=== PATIENT | female | born 1995 | race Caucasian/White ===

== ENCOUNTER → 2019-07-09 16:10 | Outpatient (BNVA) | payer OTHER, SELFPAY | PROVIDERS: Family Provider Nurse Practitioner; PCP Nurse Practitioner; Visit Provider Nurse Practitioner Women's Health | DX: N93.9 Abnormal uterine and vaginal bleeding, unspecified (principal) | CPT/HCPCS: 84443; 84702; 85027 ==

== ENCOUNTER → 2019-07-15 15:16 | Outpatient (BNVA) | payer OTHER, SELFPAY | PROVIDERS: Family Provider Nurse Practitioner; PCP Nurse Practitioner; Referring Provider Nurse Practitioner Women's Health; Visit Provider Nurse Practitioner Women's Health | DX: N93.9 Abnormal uterine and vaginal bleeding, unspecified (principal) | CPT/HCPCS: 76830 ==

== ENCOUNTER → 2019-10-20 08:58 | Outpatient (BNVA) | payer OTHER, SELFPAY | PROVIDERS: Family Provider Nurse Practitioner; PCP Nurse Practitioner; Visit Provider Nurse Practitioner Women's Health | DX: E61.1 Iron deficiency (principal); N93.9 Abnormal uterine and vaginal bleeding, unspecified; N94.6 Dysmenorrhea, unspecified | CPT/HCPCS: 85027 ==

== ENCOUNTER → 2020-01-20 08:41 | Outpatient (BNVA) | payer OTHER, SELFPAY | PROVIDERS: Family Provider Nurse Practitioner; Visit Provider Nurse Practitioner Women's Health | DX: E61.1 Iron deficiency (principal); N93.9 Abnormal uterine and vaginal bleeding, unspecified; N94.6 Dysmenorrhea, unspecified | CPT/HCPCS: 85025 ==

== ENCOUNTER → 2020-02-09 11:35 | Outpatient (BNVA) | payer OTHER, SELFPAY | PROVIDERS: Family Provider Nurse Practitioner; Visit Provider Obstetrics & Gynecology | DX: E61.1 Iron deficiency (principal); N94.6 Dysmenorrhea, unspecified; N93.9 Abnormal uterine and vaginal bleeding, unspecified | CPT/HCPCS: 83001; 84146; 84443; 84702 ==

== ENCOUNTER → 2021-12-04 15:55 | Outpatient (BNVA) | payer BC, SELFPAY | PROVIDERS: Family Provider Nurse Practitioner; Visit Provider Obstetrics & Gynecology | DX: Z12.4 Encounter for screening for malignant neoplasm of cervix (principal); Z01.419 Encounter for gynecological examination (general) (routine) without abnormal findings; R10.2 Pelvic and perineal pain | CPT/HCPCS: 88175 ==

== ENCOUNTER → 2021-12-11 11:34 | Outpatient (BNVA) | payer BC, SELFPAY | PROVIDERS: Family Provider Nurse Practitioner; Visit Provider Obstetrics & Gynecology | DX: Z32.01 Encounter for pregnancy test, result positive (principal) | CPT/HCPCS: 84702 ==

== ENCOUNTER → 2021-12-14 08:24 | Outpatient (BNVA) | payer BC, SELFPAY | PROVIDERS: Family Provider Nurse Practitioner; Visit Provider Obstetrics & Gynecology | DX: Z34.90 Encounter for supervision of normal pregnancy, unspecified, unspecified trimester (principal) | CPT/HCPCS: 84702 ==

== ENCOUNTER → 2021-12-15 13:50 | Outpatient (BNVA) | payer BC, SELFPAY | PROVIDERS: Family Provider Nurse Practitioner; Visit Provider Obstetrics & Gynecology | DX: Z36.87 Encounter for antenatal screening for uncertain dates (principal) | CPT/HCPCS: 76801; 76817 ==

== ENCOUNTER → 2021-12-18 16:07 | Outpatient (BNVA) | payer BC, SELFPAY | PROVIDERS: Family Provider Nurse Practitioner; Visit Provider Obstetrics & Gynecology | DX: O28.3 Abnormal ultrasonic finding on antenatal screening of mother (principal) | CPT/HCPCS: 84702 ==

== ENCOUNTER → 2021-12-22 08:23 | Outpatient (BNVA) | payer BC, SELFPAY | PROVIDERS: Family Provider Nurse Practitioner; Visit Provider Obstetrics & Gynecology | DX: O36.80X0 Pregnancy with inconclusive fetal viability, not applicable or unspecified (principal); Z3A.01 Less than 8 weeks gestation of pregnancy | CPT/HCPCS: 76817 ==

== ENCOUNTER → 2021-12-29 13:56 | Outpatient (BNVA) | payer BC, SELFPAY | PROVIDERS: Family Provider Nurse Practitioner; Visit Provider Obstetrics & Gynecology | DX: Z34.90 Encounter for supervision of normal pregnancy, unspecified, unspecified trimester (principal) | CPT/HCPCS: 80307; 83036; 84315; 85027; 86592; 86762; 86803; 86850; 86900; 87086; 87340; 87806 ==

== ENCOUNTER → 2022-02-02 14:21 | Outpatient (BNVA) | payer BC, SELFPAY | PROVIDERS: Family Provider Nurse Practitioner; Visit Provider Obstetrics & Gynecology | DX: Z34.90 Encounter for supervision of normal pregnancy, unspecified, unspecified trimester (principal) | CPT/HCPCS: 84315; 87491; 87591 ==

== ENCOUNTER → 2022-02-23 10:25 | Outpatient (BNVA) | payer BC, SELFPAY | PROVIDERS: Family Provider Nurse Practitioner; Visit Provider Nurse Practitioner Women's Health | DX: Z34.90 Encounter for supervision of normal pregnancy, unspecified, unspecified trimester (principal) | CPT/HCPCS: 82105; 84315 ==

== ENCOUNTER → 2022-03-30 10:15 | Outpatient (BNVA) | payer BC, SELFPAY | PROVIDERS: Family Provider Nurse Practitioner; Visit Provider Obstetrics & Gynecology | DX: Z36.87 Encounter for antenatal screening for uncertain dates (principal) | CPT/HCPCS: 76805 ==

== ENCOUNTER → 2022-05-01 15:00 | Outpatient (BNVA) | payer BC, SELFPAY | PROVIDERS: Family Provider Nurse Practitioner; Visit Provider Nurse Practitioner Women's Health | DX: Z34.90 Encounter for supervision of normal pregnancy, unspecified, unspecified trimester (principal); R93.5 Abnormal findings on diagnostic imaging of other abdominal regions, including retroperitoneum | CPT/HCPCS: 82950; 84315 ==

== ENCOUNTER 2022-05-07 08:44 | Outpatient (CLI) | payer BC, SELFPAY ==
[2022-05-07 10:12] LABS: Glucose Fasting Gestational 97 mg/dL (65-115)
[2022-05-07 12:09] LABS: Glucose 1 Hour 114 mg/dL
== END 2022-05-07 08:45 | disposition home or self-care (01) ==
LOC: LAB 08:47
PROVIDERS: Visit Provider Nurse Practitioner Women's Health
DX: Z34.90 Encounter for supervision of normal pregnancy, unspecified, unspecified trimester (principal)
CPT/HCPCS: 36415; 82951; 82952

== ENCOUNTER → 2022-05-09 08:00 | Outpatient (BNVA) | payer BC, SELFPAY | PROVIDERS: Visit Provider Nurse Practitioner Women's Health | DX: Z34.90 Encounter for supervision of normal pregnancy, unspecified, unspecified trimester (principal) | CPT/HCPCS: 82951; 82952 ==

== ENCOUNTER 2022-05-19 07:30 | Outpatient (CLI) | payer BC, SELFPAY ==
[2022-05-19 08:21] LABS: Glucose Fasting 98 mg/dL (74-109)
[2022-05-19 09:15] LABS: Glucose 1 Hour 200 mg/dL
[2022-05-19 10:43] LABS: Glucose 2 Hour 109 mg/dL
[2022-05-19 11:17] LABS: Glucose 3 Hour 60 mg/dL
== END 2022-05-19 07:31 | disposition home or self-care (01) ==
PROVIDERS: Visit Provider Nurse Practitioner Women's Health
DX: O99.810 Abnormal glucose complicating pregnancy (principal)
CPT/HCPCS: 36415; 82951; 82952

== ENCOUNTER → 2022-06-25 14:22 | Outpatient (BNVA) | payer BC, SELFPAY | PROVIDERS: Visit Provider Obstetrics & Gynecology | DX: Z34.90 Encounter for supervision of normal pregnancy, unspecified, unspecified trimester (principal) | CPT/HCPCS: 84315; 85027 ==

== ENCOUNTER → 2022-07-06 09:30 | Outpatient (BNVA) | payer BC, SELFPAY | PROVIDERS: Visit Provider Obstetrics & Gynecology | DX: Z34.90 Encounter for supervision of normal pregnancy, unspecified, unspecified trimester (principal) | CPT/HCPCS: 82728; 83550; 85027 ==

== ENCOUNTER → 2022-07-16 09:00 | Outpatient (BNVA) | payer BC, SELFPAY | PROVIDERS: Visit Provider Obstetrics & Gynecology | DX: O99.019 Anemia complicating pregnancy, unspecified trimester; D64.9 Anemia, unspecified; Z3A.00 Weeks of gestation of pregnancy not specified | CPT/HCPCS: 82728; 83550; 85025 ==

== ENCOUNTER → 2022-07-20 10:57 | Outpatient (BNVA) | payer BC, SELFPAY | PROVIDERS: Visit Provider Obstetrics & Gynecology | DX: O99.019 Anemia complicating pregnancy, unspecified trimester (principal); D64.9 Anemia, unspecified; Z3A.00 Weeks of gestation of pregnancy not specified | CPT/HCPCS: 84315; 85025; 87081 ==

== ENCOUNTER → 2022-07-27 10:47 | Outpatient (BNVA) | payer BC, SELFPAY | PROVIDERS: Visit Provider Obstetrics & Gynecology | DX: O99.019 Anemia complicating pregnancy, unspecified trimester (principal); Z3A.37 37 weeks gestation of pregnancy | CPT/HCPCS: 84315; 85025 ==

== ENCOUNTER 2022-08-10 06:10 | Inpatient (IN) | payer BC, SELFPAY ==
[2022-08-10] VITALS (98 sets, daily range): BP systolic 98–150; BP diastolic 48–88; PULSE 66–116; RESP 18; TEMP 36.1–36.6; O2SAT 87–100; BMI 30.9
[2022-08-10 05:44] LABS: Nitrazine Paper, PH Positive
[2022-08-10 06:26] LABS: Basophils % 0.3 %; Eosinophils # 0.2 10^3/uL (0.0-0.8); Eosinophils % 1.9 %; Hematocrit 33.1 % (37.0-47.0); Hemoglobin 10.5 g/dL (11.5-15.3); Lymphocytes # 1.7 10^3/uL (0.8-4.8); Lymphocytes % 18.6 %; Mean Corpuscular HGB Conc 31.7 g/dL (30.0-36.0); Mean Corpuscular Hemoglobin 31.3 pg (28.0-34.0); Mean Corpuscular Volume 98.8 fl (81-99); Mean Platelet Volume 10.3 fL (7.4-10.4); Monocytes # 0.7 10^3/uL (0.2-0.9); Monocytes % 7.5 %; Neutrophils # 6.52 10^3/uL (1.8-7.7); Neutrophils % 70.2 %; Nucleated Red Blood Cells % 0 %; Platelet Count 234 10^3/cmm (130-400); Red Blood Count 3.35 10^6/uL (4.1-5.3); White Blood Count 9.3 10^3/uL (4.0-10.0)
[2022-08-10] MEDS: miSOPROStol 100 mcg tablet 25 MCG SUBLINGUAL ×2 (06:29→15:23)
[2022-08-10] MEDS: lactated ringers 1,000 ML 999 ML IV ×2 (16:46→18:03)
--- NOTE | 2022-08-10 18:06 | ANES.PROC ---
Anesthesia Procedures Procedure/Date: 08/10/22 epidural Epidural: Time Out Performed: Yes Consents Signed: Procedure Consent Consent: from patient, risks and benefits reviewed and patient agrees to proceed Lumbar Level: L3-L4 Epidural position: sitting Epidural procedure: sterile prep of area, 1% lidocaine to numb the area, 18 g needle, negative for paresthesia passed, test dose given, 1.5% xylocaine 1:200k epi, placed PCEA, no systemic response, sterile dressing applied, L.U.D. no apparent complications and 0.2% Ropiavacaine @ mls/hr (11) Additional Comments: JAYNA at 4.5, taped at 12 at skin
--- NOTE | 2022-08-10 18:07 | P.ANESASSM_ITS ---
Pre-Anesthetic Assessment Height/Weight: Height 1.55 m Weight 74.389 kg Temp Pulse Resp BP Pulse Ox O2 Del Method 97.9 F 75 18 120/58 97 Room Air 08/10/22 15:06 08/10/22 18:03 08/10/22 06:01 08/10/22 18:03 08/10/22 18:02 08/10/22 05:46 Preop Diagnosis: iup epidural Familial anesthetic complications: none Was Beta Primo taken within 24 hours: N/A Was Clonidine taken within 24 hours: N/A Last Intake: 12:00 Social No alcohol and No tobacco Exam alert and oriented x 3 Airway Submandibular: within normal limits Cervical ROM: within normal limits Mallampati: Class II Dentition: full History/ROS No significant history except as noted Pulmonary None reported CV/HEM None reported None reported Hepatic None reported GI None reported Metabolic None reported Musc/skel None reported Neuropsych was told in the past she has scoliosis Anesthetic Plan ASA status: 2 Anesthesia: Anesthesia Evaluation and Regional (specify below) (EBONIE) Medications/Allergies Home Medications Medication Instructions Recorded Confirmed Last Taken Type wacnxehx-aaujrhc-ziur-iron 18 tab PO 12/04/21 07/27/22 Unknown History mg-FA 400 mcg-vit K 25 mcg tablet (One-A-Day Women's Complete) ascorbate calcium (vitamin C) 500 500 mg PO DAILY 06/25/22 07/27/22 Unknown Hi story mg tablet ferrous sulfate 325 mg (65 mg 325 mg PO DAILY 06/25/22 07/27/22 Unknown History iron) tablet (Feosol) Allergies Allergy/AdvReac Type Severity Reaction Status Date / Time Penicillins Allergy Intermediate Rash Verified 07/27/22 10:58 Current Medications Generic Name Dose Route Start Last Admin Trade Name Freq PRN Reason Stop Dose Admin Lactated Ringer's 1,000 mls @ 999 mls/hr 08/10/22 16:58 08/10/22 18:03 Lactated Ringers IV 999 mls/hr .Q1H1M PRN Administration See label comments PFSH Anesthesia Medical History Raynaud's phenomenon with gangrene Scoliosis Surgical History No pertinent past surgical history Family History Grandmother Diabetes Grandfather Diabetes Family/Other Diabetes Father Hyperlipidemia Mother Hypertension Denies family history of Colon cancer Ovarian cancer Heart disease Breast cancer Family history of thyroid problem Uterine cancer Stroke Social History Substance/Drug Use: never Female Reproductive History : 1 Data Anesthesia 08/10/22 06:00 Short CBC 08/10/22 Range/Units 06:00 WBC 9.3 (4.0-10.0) 10^3/uL Hgb 10.5 L (11.5-15.3) g/dL Hct 33.1 L (37.0-47.0) % MCV 98.8 (81-99) fl Plt Count 234 (130-400) 10^3/cmm Neut % (Auto) 70.2 % Neut # (Auto) 6.52 (1.8-7.7) 10^3/uL Cardiac Studies: No Data to Display
[2022-08-10] MEDS: dextrose 5%-lactated ringers 1,000 ML 125 ML IV ×2 (18:31→22:30)
[2022-08-10] MEDS: clindamycin 600 MG/50 ML PREMIX 100 MG IV (23:46)
[2022-08-11] VITALS (53 sets, daily range): BP systolic 99–156; BP diastolic 55–86; PULSE 82–150; RESP 17; TEMP 36.7–37.8; O2SAT 91–100
[2022-08-11] MEDS: acetaminophen 325 mg Tablet 650 MG PO (05:16)
[2022-08-11] MEDS: fentaNYL 50 mcg/mL INJ 2mL IVP (07:38)
--- NOTE | 2022-08-11 07:41 | PC.NURSE ---
vacuum applied per dr medina at 0700:58. vacuum removed at 0701:27. applied at 0701:28. off at 0701:42. on at 0701:44. pop off at 0701:58. on at 0703:00. off at 0703:32. on at 0703:34. pop off at 0704:02. on at 0705:02. pop off at 0705:24. third pop off announced to room at this time. on at 0707. pop off at 0707. on at 0709. off at 0709. vacuum on at 0711. vacuum off at 0712.
--- NOTE | 2022-08-11 08:10 | P.ANES_ITS ---
Anesthesia Procedures Procedure/Date: 08/11/22 Dose Epidural for Pain Management. Procedure Narrative: OUTSIDE SALESMAN called to bedside to dose Epidural during vaginal repair. Patient is resting with baby on chest reports that epidural was functional 10ml 3% Nesicaine was drawn up and given via epidural, negative aspiration prior to injection. Relief reported by patient.
[2022-08-11] MEDS: ibuprofen 800 mg tablet PO ×3 (09:39→21:02)
[2022-08-11] MEDS: docusate sodium 100 mg Capsule PO (21:02)
[2022-08-11 21:24] LABS: Hematocrit 23.2 % (37.0-47.0); Hemoglobin 7.4 g/dL (11.5-15.3); Mean Corpuscular HGB Conc 31.9 g/dL (30.0-36.0); Mean Corpuscular Hemoglobin 31.6 pg (28.0-34.0); Mean Corpuscular Volume 99.1 fl (81-99); Platelet Count 177 10^3/cmm (130-400); Red Blood Count 2.34 10^6/uL (4.1-5.3); Red Cell Distribution Width 15.4 % (12.1-15.1); White Blood Count 18.2 10^3/uL (4.0-10.0)
[2022-08-11] MEDS: ferrous sulfate EC 325 mg Tablet PO (22:48)
[2022-08-12 04:00] VITALS: BP 112/57; PULSE 89; RESP 18; TEMP 36.4; O2SAT 97
[2022-08-12] MEDS: ibuprofen 800 mg tablet PO (08:35)
[2022-08-12] MEDS: docusate sodium 100 mg Capsule PO (08:35)
[2022-08-12] MEDS: prenatal vitamin Capsule 1 CAP PO (08:35)
[2022-08-12] MEDS: ferrous sulfate EC 325 mg Tablet PO (08:35)
--- NOTE | 2022-08-12 10:06 | PM.OBGYHP ---
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 History of Present Illness August 10, 2022, 1010 Elicia Morrow is a 27 year old female G1 EDC August 15, 2022 at 39 + weeks no complications c/o leakage of clear fluid and UCs no bleeding + active movements Present Details : 1 Para: 0 Labs Rubella: Immune GBS: Negative Medications/Allergies Home Medications Medication Instructions Recorded Confirmed Last Taken Type inzqsyrv-ssusroe-qxvd-iron 18 tab PO 12/04/21 07/27/22 Unknown History mg-FA 400 mcg-vit K 25 mcg tablet (One-A-Day Women's Complete) ascorbate calcium (vitamin C) 500 500 mg PO DAILY 06/25/22 07/27/22 Unknown History mg tablet ferrous sulfate 325 mg (65 mg 325 mg PO DAILY 06/25/22 07/27/22 Unknown History iron) tablet (Feosol) Allergies Allergy/AdvReac Type Severity Reaction Status Date / Time Penicillins Allergy Intermediate Rash Verified 07/27/22 10:58 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 PFSH: Medical History Raynaud's phenomenon with gangrene Scoliosis Surgical History No pertinent past surgical history Family History Grandmother Diabetes Grandfather Diabetes Family/Other Diabetes Father Hyperlipidemia Mother Hypertension Denies family history of Colon cancer Ovarian cancer Heart disease Breast cancer Family history of thyroid problem Uterine cancer Stroke Social History Substance/Drug Use: never Other Female Reproductive History: Hx Age of Menarche: 15 History History History 1 Term Miscarriages/Ectopic Living Children Care KERA Calculator Estimated Delivery Date Method Current WG Current Estimate 08/15/22 Ultrasound #1 39w 4d Other Estimates 08/06/22 LMP (Uncertain) 40w 6d 08/08/22 Ultrasound #2 40w 4d Specific Issues/Plans Right adnexal tenderness Anemia <del>Abnormal</del> <del>GCT</del> <del>with</del> <del>normal</del> <del>3-hour</del> RESOLVED Vitals/I&O/Wt Last Vital Signs Temp 97.6 F 08/12/22 04:00 Pulse 89 08/12/22 04:00 Resp 18 08/12/22 04:00 BP 112/57 08/12/22 04:00 Pulse Ox 97 08/12/22 04:00 O2 Del Method Room Air 08/12/22 04:00 08/11/22 08/12/22 08/12/22 22:59 06:59 14:59 Output Total 400 / 900 Balance -400 / 627.033 Physical Exam Narrative: VS normal comfortable Fundal height 38 cm, cephalic Perineum: + gross clear fluid Cx: 1 cm / -2 External monitor: + UCs, mild to palpation heart tracing good variability, + accelerations Urinary Catheter Management: Cochran Latex: Cath Placed During This Visit: yes, but has since been removed by the nurse Reason for Continuing Indwelling Catheter: Decision to DC Catheter Urinary Catheter Date of Insertion: 08/10/22 Urinary Catheter Time of Insertion: 18:30 Date Urinary Catheter Removed: 08/11/22 Time Urinary Catheter Discontinued: 06:37 Data 08/11/22 21:15 Micro: GBS negative A&P Assessment and plan (1) Term : (2) Spontaneous rupture of membranes: fetus reassuring plan cytotec labor induction Attestations Medical Necessity Statement*: patient at 39+ weeks gestation with spontaneous rupture of membranes Coding Level of Care Code Acute Code for Chg Fwd Diagnoses Term Z34.90 Spontaneous rupture of membranes Time Spent (min) 45
--- NOTE | 2022-08-12 10:17 | P.PN_ITS ---
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 Subjective Subjective: Interval history: August 10, 2022, 2149 patient comfortable with epidural fetus reassuring Cx: 4-5 cm / 90 / -2 IUPC placed plan start clindamycin 600 mg IV q8h (patient SROM for more than 12 hours and allergic to penicillin) Labor: Station: +2 Amniotic Membrane Status: Ruptured Monitor Mode: Internal (IUPC) Contraction Pattern: Irregular Uterine Tone Measurement: 15 Vitals/I&O/Wt Last Vital Signs Temp 97.6 F 08/12/22 04:00 Pulse 89 08/12/22 04:00 Resp 18 08/12/22 04:00 BP 112/57 08/12/22 04:00 Pulse Ox 97 08/12/22 04:00 O2 Del Method Room Air 08/12/22 04:00 08/11/22 08/12/22 08/12/22 22:59 06:59 14:59 Output Total 400 / 900 Balance -400 / 627.033 Physical Exam Urinary Catheter Management: Cochran Latex: Cath Placed During This Visit: yes, but has since been removed by the nurse Reason for Continuing Indwelling Catheter: Decision to DC Catheter Urinary Catheter Date of Insertion: 08/10/22 Urinary Catheter Time of Insertion: 18:30 Date Urinary Catheter Removed: 08/11/22 Time Urinary Catheter Discontinued: 06:37 Data 08/11/22 21:15 A&P Assessment and plan (1) Spontaneous rupture of membranes: plan continue pitocin augmentation of labor (2) Term : Attestations Medical Necessity Statement*: patient at term with spontaneous rupture of membranes Coding Level of Care Code Acute Code for Chg Fwd Diagnoses Spontaneous rupture of membranes Term Z34.90 Time Spent (min) 15
--- NOTE | 2022-08-12 10:20 | P.PN_ITS ---
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 Subjective Subjective: Interval history: August 11, 2022, 0435 fetus reassuring pitocin at 8 mU UCs not adequate Cx: 7 cm (per RN exam) Continue pitocin Labor: Station: +2 Amniotic Membrane Status: Ruptured Monitor Mode: Internal (IUPC) Contraction Pattern: Irregular Uterine Tone Measurement: 15 Vitals/I&O/Wt Last Vital Signs Temp 97.6 F 08/12/22 04:00 Pulse 89 08/12/22 04:00 Resp 18 08/12/22 04:00 BP 112/57 08/12/22 04:00 Pulse Ox 97 08/12/22 04:00 O2 Del Method Room Air 08/12/22 04:00 08/11/22 08/12/22 08/12/22 22:59 06:59 14:59 Output Total 400 / 900 Balance -400 / 627.033 Physical Exam Urinary Catheter Management: Cochran Latex: Cath Placed During This Visit: yes, but has since been removed by the nurse Reason for Continuing Indwelling Catheter: Decision to DC Catheter Urinary Catheter Date of Insertion: 08/10/22 Urinary Catheter Time of Insertion: 18:30 Date Urinary Catheter Removed: 08/11/22 Time Urinary Catheter Discontinued: 06:37 Data 08/11/22 21:15 A&P Assessment and plan (1) Spontaneous rupture of membranes: (2) Term : Attestations Medical Necessity Statement*: patient at term with spontaneous rupture of membranes Coding Level of Care Code Acute Code for Chg Fwd Diagnoses Spontaneous rupture of membranes Term Z34.90 Time Spent (min) 15
--- NOTE | 2022-08-12 10:31 | PM.OBGYPN ---
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 Subjective Subjective: Interval history: August 11, 2022, 0910 DELIVERY NOTE fetus CONRADO, + 2 station patient has been pushing x more than one hour now with poor pushing efforts due to exhaustion Kiwi vacuum extractor applied Mild traction used through three UCs, + 3 pop-offs brought head to +3 patient spontaneously pushed baby to perineum shoulders delivered easily vigorous male cord gases and blood obtained + retained placenta required manual removal placenta grossly complete uterine cavity explored manually, palpably clear Third-degree perineal laceration repaired in layers EBL: 500 cc no complications Labor: Station: +2 Amniotic Membrane Status: Ruptured Monitor Mode: Internal (IUPC) Contraction Pattern: Irregular Uterine Tone Measurement: 15 Vitals/I&O/Wt Last Vital Signs Temp 97.6 F 08/12/22 04:00 Pulse 89 08/12/22 04:00 Resp 18 08/12/22 04:00 BP 112/57 08/12/22 04:00 Pulse Ox 97 08/12/22 04:00 O2 Del Method Room Air 08/12/22 04:00 08/11/22 08/12/22 08/12/22 22:59 06:59 14:59 Output Total 400 / 900 Balance -400 / 627.033 Physical Exam Urinary Catheter Management: Cochran Latex: Cath Placed During This Visit: yes, but has since been removed by the nurse Reason for Continuing Indwelling Catheter: Decision to DC Catheter Urinary Catheter Date of Insertion: 08/10/22 Urinary Catheter Time of Insertion: 18:30 Date Urinary Catheter Removed: 08/11/22 Time Urinary Catheter Discontinued: 06:37 Data 08/11/22 21:15 A&P Assessment and plan (1) Spontaneous rupture of membranes: (2) Term : (3) Vaginal delivery: (4) Perineal laceration during delivery: Attestations Medical Necessity Statement*: patient at term, spontaneous rupture of membranes, vaginal delivery Coding Level of Care Code Acute Code for Chg Fwd Diagnoses Spontaneous rupture of membranes Term Z34.90 Vaginal delivery O80 Perineal laceration during delivery O70.9 Time Spent (min) 60
--- NOTE | 2022-08-12 10:42 | PM.DELIVERY ---
Delivery Note: Date of delivery: August 11, 2022 Pre-delivery diagnoses: 39+ weeks spontaneous vaginal delivery labor augmentation Post-delivery diagnoses: vacuum-assisted vaginal delivery retained placenta third-degree perineal laceration Procedure: Vacuum-assisted vaginal delivery manual removal of retained placenta third-degree perineal laceration reapired Delivering Physician: Teddy Benton M.D. Estimated blood loss (mL): 500 Pre-Delivery Course: cytotec and pitocin induction / augmentation of labor Delivery: vacuum-assisted vaginal delivery Post-Delivery Status: good History History History 1 Term Miscarriages/Ectopic Living Children A&P Assessment and plan (1) Term : (2) Spontaneous rupture of membranes: (3) Vaginal delivery: (4) Perineal laceration during delivery: (5) Retained placenta: Coding Level of Care Code Acute Code for Chg Fwd Diagnoses Term Z34.90 Spontaneous rupture of membranes Vaginal delivery O80 Perineal laceration during delivery O70.9 Retained placenta O73.0 Time Spent (min) 60
--- NOTE | 2022-08-12 10:50 | P.PN_ITS ---
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 Subjective Subjective: Interval history: August 12, 2022, 0850 no c/o except for tailbone pain no dizziness, weakness eating, ambulating, voiding well no bleeding caring for without any difficulties Labor: Station: +2 Amniotic Membrane Status: Ruptured Monitor Mode : Internal (IUPC) Contraction Pattern: Irregular Uterine Tone Measurement: 15 Vitals/I&O/Wt Last Vital Signs Temp 97.6 F 08/12/22 04:00 Pulse 89 08/12/22 04:00 Resp 18 08/12/22 04:00 BP 112/57 08/12/22 04:00 Pulse Ox 97 08/12/22 04:00 O2 Del Method Room Air 08/12/22 04:00 08/11/22 08/12/22 08/12/22 22:59 06:59 14:59 Output Total 400 / 900 Balance -400 / 627.033 Physical Exam Narrative: comfortable afebrile, VS normal Abd: soft, nontender Ext: normal Urinary Catheter Management: Cochran Latex: Cath Placed During This Visit: yes, but has since been removed by the nurse Reason for Continuing Indwelling Catheter: Decision to DC Catheter Urinary Catheter Date of Insertion: 08/10/22 Urinary Catheter Time of Insertion: 18:30 Date Urinary Catheter Removed: 08/11/22 Time Urinary Catheter Discontinued: 06:37 Data 08/11/22 21:15 A&P Assessment and plan (1) Vaginal delivery: doing well (2) Anemia: continue iron BID call/return if dizziness, weakness plan re-check Hgb at next clinic visit (3) Coccygeal pain: reassurrance continue NSAIDs call/return if pain worsens Attestations Medical Necessity Statement*: patient s/p vaginal delivery Coding Level of Care Code Acute Code for Chg Fwd Diagnoses Vaginal delivery O80 Anemia D64.9 Coccygeal pain M53.3 Time Spent (min) 30
--- NOTE | 2022-08-12 10:55 | PM.OBGYDC ---
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 Date of Admission: 08/10/22 06:10 Date of Discharge: 08/12/22 Attending Provider at Admission: Teddy Benton MD Attending Provider at Discharge: Teddy Benton MD Diagnoses at Discharge Discharge Diagnosis (1) Vaginal delivery: Details from hospital stay: Vacuum-assisted vaginal delivery retained placenta requiring manual removal third-degree perineal laceration repaired Status: Acute (2) Anemia: Status: Acute (3) Coccygeal pain: Status: Acute Reason for Visit Reason for Visit: Possible ROM Hospital Course Hospital Course patient received cytotec and pitocin augmentation of labor had vacuum-assisted vaginal delivery of vigorous male normal course + anemia Information Peripartum Data: Infant Delivery Method: Vaginal Laceration description: Perineal - 3rd Degree complications: retained placenta Physical Exam Narrative: HEENT: mild conjunctival pallor Lungs: clear Cor: RRR, no tachycardia Abd: soft, nontender Ext: normal Urinary Catheter Management: Cochran Latex: Cath Placed During This Visit: yes, but has since been removed by the nurse Reason for Continuing Indwelling Catheter: Decision to DC Catheter Urinary Catheter Date of Insertion: 08/10/22 Urinary Catheter Time of Insertion: 18:30 Date Urinary Catheter Removed: 08/11/22 Time Urinary Catheter Discontinued: 06:37 History History History 1 Term Miscarriages/Ectopic Living Children Discharge Data Studies Completed and Pending Laboratory Results WBC 18.2 10^3/uL (4.0-10.0) H 08/11/22 21:15 RBC 2.34 10^6/uL (4.1-5.3) L 08/11/22 21:15 Hgb 7.4 g/dL (11.5-15.3) L 08/11/22 21:15 Hct 23.2 % (37.0-47.0) L 08/11/22 21:15 MCV 99.1 fl (81-99) H 08/11/22 21:15 MCH 31.6 pg (28.0-34.0) 08/11/22 21:15 MCHC 31.9 g/dL (30.0-36.0) 08/11/22 21:15 RDW 15.4 % (12.1-15.1) H 08/11/22 21:15 Plt Count 177 10^3/cmm (130-400) 08/11/22 21:15 MPV 10.0 fL (7.4-10.4) 08/11/22 21:15 Neut % (Auto) 70.2 % 08/10/22 06:00 Lymph % (Auto) 18.6 % 08/10/22 06:00 [place] % (Auto) 7.5 % 08/10/22 06:00 Eos % (Auto) 1.9 % 08/10/22 06:00 Baso % (Auto) 0.3 % 08/10/22 06:00 Neut # (Auto) 6.52 10^3/uL (1.8-7.7) 08/10/22 06:00 Lymph # (Auto) 1.7 10^3/uL (0.8-4.8) 08/10/22 06:00 [place] # (Auto) 0.7 10^3/uL (0.2-0.9) 08/10/22 06:00 Eos # (Auto) 0.2 10^3/uL (0.0-0.8) 08/10/22 06:00 Baso # (Auto) 0.0 10^3/uL (0.0-0.1) 08/10/22 06:00 Nucleated RBC % (auto) 0 % 08/10/22 06:00 Nucleated RBCs # 0.0 /100WBC 08/10/22 06:00 Vitals Last Vital Signs Temp 97.6 F 08/12/22 04:00 Pulse 89 08/12/22 04:00 Resp 18 08/12/22 04:00 BP 112/57 08/12/22 04:00 Pulse Ox 97 08/12/22 04:00 O2 Del Method Room Air 08/12/22 04:00 Discharge Plan Discharge Patient Disposition: Home Condition: Stable Prescriptions: Continued One-A-Day Women's Complete 18 mg-400 mcg- 25 mcg tablet PO ferrous sulfate [Feosol] 325 mg (65 mg iron) tablet 325 mg PO DAILY ascorbate calcium (vitamin C) 500 mg tablet 500 mg PO DAILY Discharge Orders: Discharge Order (Routine); Ordered 08/12/22 Ordered By: Teddy Benton Discharge Diet: Usual diet Discharge Activity: Increase activity as tolerated Patient Instructions: Opioid Safety Discharge Attestations CONSUMER SAFETY OFFICER Time Spent in Discharge Care*: less than 30 min Status at Discharge: Overall status at discharge: patient is back to baseline Coding Level of Care Code Acute Code for Chg Fwd Diagnoses Vaginal delivery O80 Anemia D64.9 Coccygeal pain M53.3 Time Spent (min) 30
[2022-08-12 12:18] VITALS: BP 112/68; PULSE 82; RESP 16; TEMP 36.7; O2SAT 97
--- NOTE | 2022-08-13 07:40 | ANE.PACU2 ---
Inpatient post-anesthesia follow up: Airway intact: Yes Vital signs: Temperature 98.0 F Pulse Rate 82 Respiratory Rate 16 Blood Pressure 112/68 Pulse Oximetry 97 Oxygen Delivery Me thod Room Air Oxygen Flow Rate Fraction of Inspir ed Oxygen Hydration adequate: Yes Nausea and vomiting: No Pain level: 2 Mental status: Baseline
== END 2022-08-12 12:39 | disposition home or self-care (01) | DRG 768 ==
LOC: OPOB 06:10 → OBGYN 06:10
PROVIDERS: Admitting Provider Obstetrics & Gynecology; Visit Provider Obstetrics & Gynecology
DX: O42.02 Full-term premature rupture of membranes, onset of labor within 24 hours of rupture (principal); Z37.0 Single live birth; O70.20 Third degree perineal laceration during delivery, unspecified; O99.02 Anemia complicating childbirth; D64.9 Anemia, unspecified; Z3A.39 39 weeks gestation of pregnancy; Z88.0 Allergy status to penicillin; I73.00 Raynaud's syndrome without gangrene; M41.9 Scoliosis, unspecified; O75.89 Other specified complications of labor and delivery; M53.3 Sacrococcygeal disorders, not elsewhere classified
CPT/HCPCS: 36415; 51702; 59025; 59409; 83986; 85025; 85027; 96374; 99211; J2400; J2795; J3010; J3490; J7040; J7120; J7121

== ENCOUNTER 2022-10-06 13:16 | Emergency (ER) | payer OTHER, BC, SELFPAY ==
[2022-10-06 13:31] VITALS: BP 121/78; PULSE 94; RESP 16; TEMP 36.8; O2SAT 95; BMI 25.1
[2022-10-06 14:03] VITALS: BP 123/79; PULSE 99; RESP 16; O2SAT 96
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
--- NOTE | 2022-10-25 15:00 | DCPLANNER ---
late entry - patient called due to no primary care physician - patient declined at this time.
== END 2022-10-06 15:10 | disposition home or self-care (01) ==
PROVIDERS: Emergency Provider Physician Assistant
DX: M54.6 Pain in thoracic spine (principal); V89.2XXA Person injured in unspecified motor-vehicle accident, traffic, initial encounter
CPT/HCPCS: 73030; 99283

== ENCOUNTER 2024-04-06 07:30 | Outpatient (CLI) | payer BC, SELFPAY ==
[2024-04-06 09:31] LABS: Estradiol 23.7 pg/mL; Progesterone 0.097 ng/mL
== END 2024-04-06 07:31 | disposition home or self-care (01) ==
PROVIDERS: PCP Family Medicine; Visit Provider Obstetrics & Gynecology Gynecology
DX: Z31.7 Encounter for procreative management and counseling for gestational carrier (principal)
CPT/HCPCS: 36415; 82670; 84144

== ENCOUNTER 2024-04-06 11:39 | Outpatient (CLI) | payer SELFPAY ==
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
== END 2024-04-06 11:40 | disposition home or self-care (01) ==
LOC: RAD 11:42
PROVIDERS: Visit Provider Nurse Practitioner Adult Health
DX: Z31.7 Encounter for procreative management and counseling for gestational carrier (principal)
CPT/HCPCS: 76830

== ENCOUNTER 2024-04-09 07:06 | Outpatient (CLI) | payer BC, SELFPAY | END 2024-04-09 07:07 | disposition home or self-care (01) | LOC: LAB 07:10 | PROVIDERS: Visit Provider Obstetrics & Gynecology Gynecology | DX: Z31.7 Encounter for procreative management and counseling for gestational carrier (principal) | CPT/HCPCS: 36415; 82670 ==

== ENCOUNTER 2024-04-13 07:01 | Outpatient (CLI) | payer BC, SELFPAY ==
[2024-04-13 07:57] LABS: Estradiol 351.7 pg/mL
== END 2024-04-13 07:02 | disposition home or self-care (01) ==
PROVIDERS: Visit Provider Obstetrics & Gynecology Gynecology
DX: Z31.7 Encounter for procreative management and counseling for gestational carrier (principal)
CPT/HCPCS: 82670

== ENCOUNTER 2024-04-24 07:11 | Outpatient (CLI) | payer BC, SELFPAY ==
[2024-04-24 08:10] LABS: Progesterone 20.13 ng/mL
== END 2024-04-24 07:12 | disposition home or self-care (01) ==
LOC: LAB 07:16
PROVIDERS: PCP Family Medicine
DX: Z01.89 Encounter for other specified special examinations (principal)
CPT/HCPCS: 36415; 84144

== ENCOUNTER 2024-05-02 08:26 | Outpatient (CLI) | payer BC, SELFPAY | END 2024-05-02 08:27 | disposition home or self-care (01) | PROVIDERS: Obstetrics & Gynecology Gynecology; PCP Family Medicine; Visit Provider Family Medicine | DX: Z01.89 Encounter for other specified special examinations (principal) | CPT/HCPCS: 84702 ==

== ENCOUNTER 2024-05-04 07:20 | Outpatient (CLI) | payer BC, SELFPAY | END 2024-05-04 07:21 | disposition home or self-care (01) | LOC: LAB 07:22 | PROVIDERS: PCP Family Medicine; Visit Provider Obstetrics & Gynecology Gynecology | DX: Z31.7 Encounter for procreative management and counseling for gestational carrier (principal) | CPT/HCPCS: 36415; 84702 ==

== ENCOUNTER 2024-05-06 07:01 | Outpatient (CLI) | payer BC, SELFPAY | END 2024-05-06 07:02 | disposition home or self-care (01) | LOC: LAB 07:09 | PROVIDERS: PCP Family Medicine; Visit Provider Family Medicine | DX: Z31.7 Encounter for procreative management and counseling for gestational carrier (principal) | CPT/HCPCS: 36415; 84702 ==

== ENCOUNTER 2024-09-08 12:37 | Outpatient (CLI) | payer BC, SELFPAY ==
[2024-09-08 12:50] VITALS: BP 128/73; PULSE 94
[2024-09-08 12:52] VITALS: RESP 18; BMI 29.0
[2024-09-08 13:03] VITALS: BP 109/62; PULSE 88
[2024-09-08 13:07] LABS: Bilirubin Urine Negative (Negative); Blood Urine Negative (Negative); Glucose Urine UA Negative (Normal); Ketones Urine Negative (Negative); Leukocyte Esterase Urine Negative (Negative); Nitrate Urine Negative (Negative); Protein Urine Negative (Negative); Specific Gravity, Urine 1.009 (1.005-1.030); Urine Appearance Clear (CLEAR); Urine Color Yellow (Yellow); Urobilinogen Urine 0.2 mg/dL (Negative)
[2024-09-08 13:13] LABS: Bacteria Urine 1+ /hpf; Hyaline Casts Urine 0.81 /lpf; RBC Urine 0-2 /hpf (0-2); Squamous Epithelial Cell Urine 0-5 /hpf (0-5)
[2024-09-08 13:18] VITALS: BP 109/60; PULSE 92
[2024-09-08 13:22] LABS: Add Urine Culture? No
== END 2024-09-08 13:30 | disposition home or self-care (01) ==
LOC: OPOB 12:38 → OBGYN 12:40
PROVIDERS: PCP Family Medicine; Visit Provider Family Medicine
DX: O26.899 Other specified pregnancy related conditions, unspecified trimester (principal); Z3A.00 Weeks of gestation of pregnancy not specified; R10.9 Unspecified abdominal pain
CPT/HCPCS: 81001; 99211

== ENCOUNTER 2024-12-04 12:11 | Outpatient (CLI) | payer BC, SELFPAY ==
[2024-12-04 12:20] VITALS: BP 119/71; PULSE 97
[2024-12-04 12:23] VITALS: RESP 16; TEMP 36.5; BMI 30.4
[2024-12-04 12:35] VITALS: BP 110/59; PULSE 94
== END 2024-12-04 12:49 | disposition home or self-care (01) ==
LOC: OPOB 12:17 → OBGYN 12:18
PROVIDERS: PCP Family Medicine; Visit Provider Family Medicine
DX: O24.419 Gestational diabetes mellitus in pregnancy, unspecified control (principal); Z3A.00 Weeks of gestation of pregnancy not specified
CPT/HCPCS: 59025

== ENCOUNTER 2024-12-07 10:30 | Outpatient (CLI) | payer BC, SELFPAY ==
[2024-12-07 10:38] VITALS: BP 115/69; PULSE 130
[2024-12-07 10:48] VITALS: RESP 18; BMI 30.1
[2024-12-07 10:53] VITALS: BP 108/66; PULSE 126
[2024-12-07 10:55] VITALS: PULSE 130; O2SAT 97
[2024-12-07 11:00] VITALS: PULSE 122; O2SAT 97
[2024-12-07 11:05] VITALS: PULSE 122; O2SAT 97
== END 2024-12-07 11:08 | disposition home or self-care (01) ==
LOC: OPOB 10:33 → OBGYN 10:33
PROVIDERS: PCP Family Medicine; Visit Provider Family Medicine
DX: O24.419 Gestational diabetes mellitus in pregnancy, unspecified control (principal); Z3A.00 Weeks of gestation of pregnancy not specified
CPT/HCPCS: 59025

== ENCOUNTER 2024-12-10 08:49 | Outpatient (CLI) | payer BC, SELFPAY ==
[2024-12-10 08:56] VITALS: BP 120/79; PULSE 103
[2024-12-10 09:00] VITALS: RESP 16; TEMP 36.6
[2024-12-10 09:16] VITALS: BP 120/83; PULSE 95
[2024-12-10 09:25] VITALS: BP 120/83; PULSE 95; RESP 16; TEMP 36.6; O2SAT 99
== END 2024-12-10 09:25 | disposition home or self-care (01) ==
LOC: OPOB 08:50 → OBGYN 08:52
PROVIDERS: PCP Family Medicine; Visit Provider Family Medicine
DX: O24.419 Gestational diabetes mellitus in pregnancy, unspecified control (principal); Z3A.00 Weeks of gestation of pregnancy not specified
CPT/HCPCS: 59025; 99211

== ENCOUNTER 2024-12-14 11:40 | Outpatient (CLI) | payer BC, SELFPAY ==
[2024-12-14 11:53] VITALS: BP 129/71; PULSE 112
[2024-12-14 12:41] VITALS: BP 129/71; PULSE 109; O2SAT 98
== END 2024-12-14 12:26 | disposition home or self-care (01) ==
LOC: OPOB 11:42 → OBGYN 11:43
PROVIDERS: PCP Family Medicine; Visit Provider Family Medicine
DX: O24.419 Gestational diabetes mellitus in pregnancy, unspecified control (principal); Z3A.00 Weeks of gestation of pregnancy not specified
CPT/HCPCS: 59025

== ENCOUNTER 2024-12-18 11:54 | Outpatient (CLI) | payer BC, SELFPAY ==
[2024-12-18 11:54] VITALS: RESP 17; BMI 30.4
[2024-12-18 11:59] VITALS: BP 124/75; PULSE 97
[2024-12-18 12:14] VITALS: BP 126/74; PULSE 96
== END 2024-12-18 12:30 | disposition home or self-care (01) ==
LOC: OPOB 11:55 → OBGYN 11:56
PROVIDERS: PCP Family Medicine; Visit Provider Family Medicine
DX: O24.419 Gestational diabetes mellitus in pregnancy, unspecified control (principal); Z3A.00 Weeks of gestation of pregnancy not specified
CPT/HCPCS: 59025

== ENCOUNTER 2024-12-22 10:33 | Outpatient (CLI) | payer BC, SELFPAY ==
--- NOTE | 2024-12-22 10:38 | US_ITS ---
WS: [id number] ULTRASOUND OB FOCUSED HISTORY: GDM, GREY. COMPARISON: 08/24/2024 Single intrauterine gestation is identified in vertex position. Cervix is foreshortened at 2.7 cm. The entire cervix is probably not been included due to late gestational age and obscuration by the head. heart rate at 123 BPM. Amniotic fluid index: 9.4 cm. Anterior placenta, grade 2. US/US OB limited [id number] IMPRESSION: 1. Normal amniotic fluid index. 2. Vertex presentation.
[2024-12-22 10:43] VITALS: BP 115/72; PULSE 88
[2024-12-22 11:03] VITALS: BP 126/76; PULSE 108
[2024-12-22 11:23] VITALS: BP 122/80; PULSE 107
[2024-12-22 11:25] VITALS: BP 121/81; PULSE 95
== END 2024-12-22 11:30 | disposition home or self-care (01) ==
LOC: OPOB 10:34 → OBGYN 10:35
PROVIDERS: PCP Family Medicine; Visit Provider Family Medicine
DX: O24.419 Gestational diabetes mellitus in pregnancy, unspecified control (principal); Z3A.00 Weeks of gestation of pregnancy not specified
CPT/HCPCS: 59025; 76815; 99211

== ENCOUNTER 2024-12-25 19:46 | Inpatient (IN) | payer BC, SELFPAY ==
[2024-12-25 19:52] VITALS: BMI 30.7
[2024-12-25 19:58] VITALS: BP 125/78; PULSE 103
[2024-12-25 20:25] LABS: Hematocrit 27.9 % (36-47); Hemoglobin 8.50 g/dL (11.27-16.99); Mean Corpuscular HGB Conc 30.5 g/dL (30-55); Mean Corpuscular Hemoglobin 26.9 pg (27-33); Mean Corpuscular Volume 88.3 fl (85-98); Nucleated Red Blood Cells % 0 %; Platelet Count 255 10^3/cmm (157-399); Red Blood Count 3.16 10^6/uL (3.85-5.65); White Blood Count 12.07 10^3/uL (3.29-11.43)
[2024-12-25 20:28] VITALS: BP 131/80; PULSE 96
[2024-12-25 20:43] VITALS: BP 138/73; PULSE 99
[2024-12-25 20:58] VITALS: BP 128/63; PULSE 93
[2024-12-25 21:14] VITALS: BP 124/74; PULSE 99
[2024-12-26] VITALS (51 sets, daily range): BP systolic 94–156; BP diastolic 53–84; PULSE 77–112; RESP 16–17; TEMP 36.5–36.6; O2SAT 97–99
[2024-12-26] MEDS: oxytocin 30 UNIT/500 ML BAG IV (09:46)
--- NOTE | 2024-12-26 10:37 | PM.OPHPUD ---
Labor & Delivery H&P Update Date of Procedure: December 26, 2024 Date H&P Performed: 12/22/24 Admission Diagnosis: IUP at 38 weeks 2 day gestation Gestational diabetes mellitus IVF Primary indication for procedure: Gestational diabetes mellitus IVF with egg donor advanced maternal age Planned procedure: Induction of labor and delivery
[2024-12-26] MEDS: ROPivacaine premix 200 MG/100 ML PREMIX 10 MG EPIDURAL (12:54)
--- NOTE | 2024-12-26 13:31 | ANES.PREANE2 ---
Pre-Anesthetic Assessment Height/Weight: Height 5 ft 1 in Weight 162 lb 8 oz Pulse Resp BP Pulse Ox O2 Del Method 83 16 117/68 99 Room Air 12/26/24 13:28 12/26/24 05:53 12/26/24 13:28 12/26/24 12:47 12/25/24 20:49 Preop Diagnosis: IUP in active labor Was Beta Primo taken within 24 hours: N/A Was Clonidine taken within 24 hours: N/A Social No alcohol and No tobacco Exam alert, oriented x 3, clear to auscultation bilaterally and regular rate & rhythm Airway Submandibular: within normal limits Cervical ROM: within normal limits Mallampati: Class II Dentition: full Anesthetic Plan ASA status: 2 Anesthesia: Regional (specify below) Other: G2, P1 here in active labor Gestational diabetes during on metformin Denies any cardiac or pulmonary issues Mild scoliosis noted Labs reviewed acceptable for procedure Plan for routine epidural placement Medications/Allergies Home Medications ?Medication ?Instructions ?Recorded ?Confirmed ?Last Taken ?Type 1 cap PO DAILY 12/04/24 12/25/24 12/25/24 History metformin 1 tab PO DAILY 12/04/24 12/25/24 12/25/24 History ferrous sulfate 325 mg (65 mg 325 mg PO DAILY 12/10/24 12/25/24 12/25/24 History iron) tablet Allergies Allergy/AdvReac Type Severity Reaction Status Date / Time Penicillins Allergy Intermediate Rash Verified 12/25/24 20:22 Current Medications Generic Name Dose Route Start Last Admin Trade Name Freq PRN Reason Stop Dose Admin Dextrose/Lactated Ringer's 1,000 mls @ 125 mls/hr 12/26/24 06:00 12/26/24 09:46 Dextrose 5%-Lactated Ringers IV 125 mls/hr .Q8H TIAGO Administration Oxytocin 30 unit in 500 mls @ 1 mls/hr 12/26/24 09:00 12/26/24 11:40 Pitocin IV 13 milliunit/min .Q24H TIAGO 13 mls/hr Protocol Titration 1 MILLIUNIT/MIN Ropivacaine 200 mg in 100 mls @ 10 mls/hr 12/26/24 11:15 12/26/24 12:54 Naropin Premix EPIDURAL 10 mls/hr .Q10H TIAGO Administration Sodium Chloride 1,000 mls @ 999 mls/hr 12/26/24 11:14 12/26/24 12:47 Sodium Chloride 0.9% IV Infused .Q1H1M PRN Infusion See label comments FOR[facility]LY [facility], [facility] Anesthesia Medical History (Updated 04/10/23 @ 14:17 by Kwesi Seymour MD) Retained placenta Perineal laceration during delivery Vaginal delivery Spontaneous rupture of membranes Term Raynaud's phenomenon with gangrene Scoliosis Surgical History No pertinent past surgical history Family History Grandmother Diabetes Grandfather Diabetes Family/Other Diabetes Father Hyperlipidemia Mother Hypertension Denies family history of Colon cancer Ovarian cancer Heart disease Breast cancer Family history of thyroid problem Uterine cancer Stroke Social History Substance/Drug Use: never Female Reproductive History : 2 Data Anesthesia 12/25/24 20:14 Short CBC 12/25/24 Range/Units 20:14 WBC 12.07 H (3.29-11.43) 10^3/uL Hgb 8.50 L (11.27-16.99) g/dL Hct 27.9 L (36-47) % MCV 88.3 (85-98) fl Plt Count 255 (157-399) 10^3/cmm Neut % (Auto) 73.8 % Neut # (Auto) 8.90 H (1.8-7.7) 10^3/uL
--- NOTE | 2024-12-26 13:32 | P.ANES_ITS ---
Anesthesia Procedures Procedure/Date: 12/26/24 Epidural: Time Out Performed: Yes Consents Signed: Procedure Consent and NPO Consent Consent: requested by attending/covering physician Lumbar Level: L3-L4 Epidural position: sitting Epidural procedure: sterile prep of area, 1% lidocaine to numb the area, 18 g needle, negative for paresthesia pa ssed, neg for paresthesia, test dose given, 1.5% xylocaine 1:200k epi, 0.2% Ropivacaine bolus ml, placed PCEA, no systemic response, sterile dressing applied, L.U.D. no apparent complications and 0.2% Ropiavacaine @ mls/hr Additional Comments: Ropivacaine 0.2% set at 10 mL/h
--- NOTE | 2024-12-26 18:01 | P.PCNOB_ITS ---
Delivery Note: Date of delivery: December 26, 2024 Procedure: Normal spontaneous vaginal delivery Estimated blood loss (mL): 100 Pre-Delivery Course: The patient had routine care at [facility]. The was complicated by gestational diabetes mellitus that was fairly well-controlled on metformin. Blood type A+ antibody negative, hepatitis B nonreactive, hepatitis C nonreactive, HIV nonreactive, rubella immune, GC chlamydia negative, RPR nonreactive, UDS negative, she failed her 3-hour glucose tolerance test and was diagnosed with gestational diabetes mellitus she was GBS negative. Delivery: This is a 29-year-old G2, P1 at 38 weeks 2 days gestation who was admitted for induction secondary to gestational diabetes mellitus. She was taking metformin and her postprandials were controlled but her fastings were not. She received Cytotec x 1 and then was started on Pitocin. She underwent artificial rupture of membranes with clear fluid. She received an epidural for pain management. She had a normal spontaneous vaginal delivery of a viable female weight 3400 g, 7 pounds 8 ounces, Apgars 8 and 9 over an intact perineum. The was suctioned at delivery and placed on her chest. The cord was clamped and cut. The placenta was delivered grossly intact and normal to inspection. 800 mcg of Cytotec was placed rectally prophylactically due to her starting baseline hemoglobin of 8.5. There was a second-degree perineal laceration that was sutured using 3-0 chromic. Elicia and the infant were doing well after delivery. History History History 1 Term 1 0 Miscarriages/Ectopic 0 Living Children 1 A&P Assessment and plan 1. Normal spontaneous vaginal delivery: PDMP PDMP Reviewed: Not Reviewed Coding Level of Care Code Acute Code for Chg Fwd Diagnoses Normal spontaneous vaginal delivery O80
--- NOTE | 2024-12-26 19:40 | PC.NURSE ---
Addendum entered by Lesli Guy RN 12/26/24 22:31: Patient helped to bathroom at this time. upon returning to bed uterus noted to be back down to 1 below umbilicus scant bleeding. Original Note: patient
[2024-12-27 00:07] VITALS: BP 96/63; PULSE 83; RESP 16; TEMP 37; O2SAT 97
[2024-12-27 03:28] VITALS: BP 124/51; PULSE 71; RESP 17; O2SAT 98
[2024-12-27 06:12] LABS: Hematocrit 26.1 % (36-47); Hemoglobin 7.90 g/dL (11.27-16.99); Mean Corpuscular HGB Conc 30.3 g/dL (30-55); Mean Corpuscular Hemoglobin 27.0 pg (27-33); Mean Corpuscular Volume 89.1 fl (85-98); Platelet Count 208 10^3/cmm (157-399); Red Blood Count 2.93 10^6/uL (3.85-5.65); White Blood Count 12.90 10^3/uL (3.29-11.43)
[2024-12-27] MEDS: PRENATAL VIT NO.130/IRON/FOLIC 1 EACH TABLET PO (08:28)
[2024-12-27 08:30] VITALS: BP 115/77; PULSE 74; RESP 16; TEMP 36.4; O2SAT 98
--- NOTE | 2024-12-27 13:18 | PM.DCS ---
Discharge Providers Date of Admission: 12/25/24 19:46 Date of Discharge: December 27, 2024 Attending Provider at Admission: Poornima Gould MD Attending Provider at Discharge: Poornima Gould MD Primary Care Provider: Poornima Gould MD Diagnoses at Discharge Discharge Diagnosis 1. Normal spontaneous vaginal delivery: Reason for Visit Reason for Visit: IOL Hospital Course Hospital Course This is a 29-year-old G2 now P2 who was admitted for induction secondary to gestational diabetes mellitus. She had a normal spontaneous vaginal delivery of a viable female infant. day #1 she was doing well. She was ambulating, tolerating a regular diet, had adequate pain control and was comfortable with discharge home. Her blood count was low to begin with and dropped to 7.9. She will take iron upon discharge. Physical Exam Narrative: Alert and oriented, sitting up in bed, heart regular rate and rhythm, lungs clear to auscultation bilaterally, abdomen is soft and nontender, fundus is firm, extremities have no calf tenderness and no edema Urinary Catheter Management: Cochran Latex: Cath Placed During This Visit: yes Urinary Catheter Date of Insertion: 12/26/24 Urinary Catheter Time of Insertion: 13:46 Discharge Data Studies Completed and Pending Laboratory Results WBC 12.90 10^3/uL (3.29-11.43) H 12/27/24 05:59 RBC 2.93 10^6/uL (3.85-5.65) L 12/27/24 05:59 Hgb 7.90 g/dL (11.27-16.99) L 12/27/24 05:59 Hct 26.1 % (36-47) L 12/27/24 05:59 MCV 89.1 fl (85-98) 12/27/24 05:59 MCH 27.0 pg (27-33) 12/27/24 05:59 MCHC 30.3 g/dL (30-55) 12/27/24 05:59 RDW 17.5 % (12.1-15.1) H 12/27/24 05:59 Plt Count 208 10^3/cmm (157-399) 12/27/24 05:59 MPV 10.1 fL (7.4-10.4) 12/27/24 05:59 Neut % (Auto) 73.8 % 12/25/24 20:14 Lymph % (Auto) 16.7 % 12/25/24 20:14 Milam % (Auto) 7.5 % 12/25/24 20:14 Eos % (Auto) 1.2 % 12/25/24 20:14 Baso % (Auto) 0.2 % 12/25/24 20:14 Neut # (Auto) 8.90 10^3/uL (1.8-7.7) H 12/25/24 20:14 Lymph # (Auto) 2.0 10^3/uL (0.8-4.8) 12/25/24 20:14 Milam # (Auto) 0.9 10^3/uL (0.2-0.9) 12/25/24 20:14 Eos # (Auto) 0.2 10^3/uL (0.0-0.8) 12/25/24 20:14 Baso # (Auto) 0.0 10^3/uL (0.0-0.1) 12/25/24 20:14 Nucleated RBC % (auto) 0 % 12/25/24 20:14 Nucleated RBCs # 0.0 /100WBC 12/25/24 20:14 Vitals Last Vital Signs Temp 97.6 F 12/27/24 08:30 Pulse 74 12/27/24 08:30 Resp 16 12/27/24 08:30 BP 115/77 12/27/24 08:30 Pulse Ox 98 12/27/24 08:30 O2 Del Method Room Air 12/27/24 08:30 Discharge Plan Discharge Patient Disposition: Home Condition: Stable Prescriptions: New ibuprofen 800 mg Tablet 800 mg PO TID PRN (Reason: Abdominal Discomfort) Qty: 40 0RF Continued ferrous sulfate 325 mg (65 mg iron) Tablet 325 mg PO DAILY Discontinued 1 cap PO DAILY metformin 1 tab PO DAILY Discharge Order = DC NOW: Discharge Order (Routine); Ordered 12/27/24 Ordered By: Poornima Gould Referrals: Poornima Gould MD [Primary Care Provider, [facility]] - 1 month Discharge Diet: Usual diet Discharge Activity: Limit activity as instructed Patient Instructions: Opioid Safety (GEN), Preeclampsia and Eclampsia After Delivery (GEN), Hemorrhage (DC), OB Discharge Report, OB Food/Drug Interaction Guide, Opioid Safety, OB Home Care, OB Vaginal Deliveries, Patient Portal & [place] Instructions Activity Restrictions/Additional Instructions: Nothing per vagina for 6 weeks Discharge Attestations Time Spent in Discharge Care*: less than 30 min Quality Metrics Clinical Quality Measures [ No reported AMI, CVA or VTE this stay] Coding Level of Care Code Acute Code for Chg Fwd Diagnoses Normal spontaneous vaginal delivery O80
[2024-12-27 14:00] VITALS: BP 120/64; PULSE 82; RESP 16; TEMP 36.7; O2SAT 98
== END 2024-12-27 14:15 | disposition home or self-care (01) | DRG 807 ==
LOC: OPOB 19:47 → OBGYN 19:47
PROVIDERS: Admitting Provider Family Medicine; PCP Family Medicine; Visit Provider Family Medicine
DX: O24.425 Gestational diabetes mellitus in childbirth, controlled by oral hypoglycemic drugs (principal); Z37.0 Single live birth; O70.1 Second degree perineal laceration during delivery; Z3A.38 38 weeks gestation of pregnancy
CPT/HCPCS: 36415; 51702; 59025; 59409; 85025; 85027; 99211; J2590; J2795; J7030; J7121; J9999